=== PATIENT | male | born 1980 | race African-American/Black ===

== ENCOUNTER 2016-09-03 12:32 | Emergency (ER) | payer OTHER ==
[~2016-09-03] VITALS: Ht 175.3 cm; Wt 89.8 kg
[2016-09-03 14:11] VITALS: BP 143/85
[2016-09-03 14:16] LABS: ABSOLUTE NEUTROPHILS 4.5 thou/uL (1.4-8.2); BASOPHILS 0.5 % (0.0-2.0); EOSINOPHILS 1.5 % (0.0-3.0); HEMATOCRIT 42.8 % (42.0-52.0); HEMOGLOBIN 14.1 gm/dL (14.0-18.0); LYMPHOCYTES 25.7 % (24.0-44.0); MCH 28.3 pg (26.0-34.0); MCV 85.9 fL (80.0-100.0); MONOCYTES 7.4 % (1.0-8.0); PLATELET COUNT 315 thou/uL (150-400); POLYS 64.9 % (36.0-66.0); RBC 4.98 mil/uL (4.50-6.00); RDW 13.4 % (10.5-14.5); WBC 6.9 thou/uL (4.0-11.0)
[2016-09-03 14:17] LABS: MANUAL DIFF NO
[2016-09-03 14:25] LABS: CALCIUM 9.1 mg/dL (8.5-10.1); POTASSIUM 4.2 mmol/L (3.5-5.1)
== END 2016-09-03 15:51 | disposition home or self-care (01) ==
LOC: ER 12:32
PROVIDERS: Emergency Medicine
DX: M85.88 Other specified disorders of bone density and structure, other site (principal); F10.99 Alcohol use, unspecified with unspecified alcohol-induced disorder

== ENCOUNTER 2016-09-07 12:29 | Emergency (ER) | payer OTHER ==
[~2016-09-07] VITALS: Ht 172.7 cm; Wt 93.4 kg
[2016-09-07 18:31] LABS: BF CRYSTALS No Crystals seen
[2016-09-07] MEDS ORDERED: NORCO 5-325 TA1 EACH PO (18:34)
[2016-09-07 18:51] VITALS: BP 125/76
== END 2016-09-07 18:25 | disposition home or self-care (01) ==
LOC: ER 12:29
PROVIDERS: Emergency Medicine
DX: M25.512 Pain in left shoulder (principal); M25.462 Effusion, left knee